=== PATIENT | male | born 1965 | race African-American/Black ===

== ENCOUNTER 2023-03-07 01:59 | Emergency (ER) | payer OTHER ==
[2023-03-07] MEDS ORDERED: Furosemide 40 MG (4 mL) VIAL ONE ×2 (02:42→03:36)
[2023-03-07 04:07] LABS: Troponin I Less than 0.010 ng/mL (< 0.028)
== END 2023-03-07 08:22 | disposition home or self-care (01) ==
LOC: ERS 01:59
DX: R22.40 Localized swelling, mass and lump, unspecified lower limb (principal); I10 Essential (primary) hypertension; Z87.891 Personal history of nicotine dependence; Z79.899 Other long term (current) drug therapy
CPT/HCPCS: 36415; 84484; 93005; 93970; 96374; J1940